=== PATIENT | female | born 1940 | race Caucasian/White ===

== ENCOUNTER → 2017-11-20 | Outpatient (CLI) | payer MEDICARE, BC | END | disposition home or self-care (01) | LOC: SURG 12:46 | PROVIDERS: ATTEND Anesthesiology Pain Medicine | DX: M47.816 Spondylosis without myelopathy or radiculopathy, lumbar region (principal); I48.91 Unspecified atrial fibrillation; I10 Essential (primary) hypertension; F17.210 Nicotine dependence, cigarettes, uncomplicated; Z98.890 Other specified postprocedural states | CPT/HCPCS: 99204 ==

== ENCOUNTER → 2017-12-18 | Outpatient (CLI) | payer MEDICARE, BC ==
[~2017-12-18] MED LIST: BUPIVACAINE MPF 0.5% 30 ML VIAL. ONE; LIDOCAINE 1% PF 30 ML VIAL. ONE; methylPREDNISolone ACETATE 40 MG/ML VIAL. ONE
== END | disposition home or self-care (01) ==
LOC: SURG 11:56
PROVIDERS: ATTEND Anesthesiology Pain Medicine
DX: M47.816 Spondylosis without myelopathy or radiculopathy, lumbar region (principal); M51.36 Other intervertebral disc degeneration, lumbar region; F17.210 Nicotine dependence, cigarettes, uncomplicated; K44.9 Diaphragmatic hernia without obstruction or gangrene; Z87.39 Personal history of other diseases of the musculoskeletal system and connective tissue; Z98.890 Other specified postprocedural states; Z91.041 Radiographic dye allergy status
CPT/HCPCS: 64493; 64494; J1030; J2001; J3490

== ENCOUNTER → 2018-06-02 | Day surgery (SDC) | payer MEDICARE, BC ==
[~2018-06-02] MED LIST changes: +ASPI81TA50 PO; +ATOR20TA58 PO; +CARV12.5 PO; +CELE200C PO; +FISH12002 PO; +FLUT9.9S NS; +GLUC100018 PO; +LACT1CAP2 PO; +MIDAZOLAM HCL PF 2 MG/2 ML VIAL. ONE; +MULT1TAB52 PO; +NIAC500T PO; +POTA20TA4 PO; +SPIR25TA5 PO; +TRAM50TA PO; +VALS1TAB22 PO; +WARF2TAB96 PO; +WARF3TAB50 PO
[2018-06-02 12:06] VITALS: BP 114/80
== END | disposition home or self-care (01) ==
LOC: SURG 09:46
PROVIDERS: ATTEND Anesthesiology Pain Medicine
DX: M47.816 Spondylosis without myelopathy or radiculopathy, lumbar region (principal); I10 Essential (primary) hypertension; E78.00 Pure hypercholesterolemia, unspecified; I48.91 Unspecified atrial fibrillation; Z91.041 Radiographic dye allergy status; Z79.82 Long term (current) use of aspirin; Z79.899 Other long term (current) drug therapy; Z72.0 Tobacco use; M19.90 Unspecified osteoarthritis, unspecified site; Z98.42 Cataract extraction status, left eye; Z98.41 Cataract extraction status, right eye; Z96.1 Presence of intraocular lens; Z98.890 Other specified postprocedural states
CPT/HCPCS: 36415; 64635; 64636; 85610; 99152; J1030; J2001; J2250; J3010; J3490

== ENCOUNTER → 2020-01-31 | Outpatient (CLI) | payer MEDICARE, BC ==
[2018-06-02 12:06] VITALS: BP 114/80
[~2020-01-31] MED LIST changes: -BUPIVACAINE MPF 0.5% 30 ML VIAL. ONE; -LIDOCAINE 1% PF 30 ML VIAL. ONE; -MIDAZOLAM HCL PF 2 MG/2 ML VIAL. ONE; +MULT-445 PO; -MULT1TAB52 PO; -methylPREDNISolone ACETATE 40 MG/ML VIAL. ONE
--- NOTE | 2020-01-31 15:18 | RAD ---
CT scan of the abdomen and pelvis without contrast 01/31/2020 CLINICAL HISTORY: Abdominal pain. TECHNIQUE: Unenhanced, contiguous, 3 mm axial sections were obtained through the abdomen and pelvis. One or more of the following individualized dose reduction techniques were utilized for this study: 1. Automated exposure control. 2. Adjustment of the mA and/or kV according to patient size. 3. Use of iterative reconstruction technique. FINDINGS: Images through the lung bases demonstrate minimal dependent subsegmental atelectasis bilaterally. The liver, spleen, pancreas, adrenal glands and kidneys are within normal limits. Atherosclerotic calcification of the abdominal aorta is seen. The abdominal aorta tapers normally. Calcified gallstones are seen within the gallbladder. No free fluid or free air is seen within the abdomen. There is no evidence of bowel obstruction. The appendix is well-visualized and is within normal limits. Images through the pelvis demonstrate the urinary bladder distended with urine. Small calcified fibroids are seen within the uterus. Scattered diverticula are seen involving the sigmoid colon. No inflammatory changes are seen in the adjacent fat. No free fluid is noted. A small left far lateral ventral hernia is seen within the mid/lower abdomen. The hernia sac measures 3.9 cm in size. It contains fat and a portion of the descending colon which is not dilated. Mild to moderate S-shaped curvature of the thoracolumbar spine is seen. Degenerative changes are seen involving lower thoracic and throughout the lumbar spine. A left-sided spinal stimulator is noted. The patient is post fusion using bone graft material at 2 L2-3, L3-4 and L4-5. IMPRESSION: 1. Cholelithiasis. 2. No acute abnormality is seen. Electronically signed by: Pavan Galvan MD (01/31/2020 3:15 PM) [id number]
== END | disposition home or self-care (01) ==
LOC: CT 10:37
PROVIDERS: ATTEND Family Medicine
DX: K43.9 Ventral hernia without obstruction or gangrene (principal); K80.20 Calculus of gallbladder without cholecystitis without obstruction; N32.89 Other specified disorders of bladder; K57.30 Diverticulosis of large intestine without perforation or abscess without bleeding; I70.0 Atherosclerosis of aorta
CPT/HCPCS: 74176

== ENCOUNTER 2020-02-16 14:57 | Observation (INO) | payer MEDICARE, BC ==
[~2020-02-16] VITALS: Ht 170.2 cm; Wt 91.7 kg
--- NOTE | 2020-02-16 15:25 | PHYS DOC ---
Past History Past Medical History: A-Fib, High Cholesterol, Hypertension Additional Past Medical Histor: Chronic back/knee pain Additional Past Surgical Histo: Back surgery Smoking: Non-smoker Alcohol Use: Rarely Drug Use: None General Adult EDM: Chief Complaint: ABDOMINAL PAIN HPI: HPI: 79-year-old female presents with report of abdominal discomfort that started this morning. Patient does report some associated nausea. Patient reports concern for possible "blockage ". Patient does report having some bowel movements in the past 24 hours. Denies vomiting. Denies fever or chills. Patient reports worse to left lower quadrant. Denies known sick contacts. Denies known exposure to COVID-19. Review of Systems: Review of Systems: Constitutional: Denies fever or chills Eyes: Denies redness or eye pain HENT: Denies nasal congestion or sore throat Respiratory: Denies cough or shortness of breath Cardiovascular: Denies chest pain or palpitations GI: Reports abdominal pain and nausea; denies vomiting : Denies dysuria or hematuria Musculoskeletal: Denies back pain or joint pain Integument: Denies rash or skin lesions Neurologic: Denies headache, focal weakness or sensory changes Complete systems were reviewed and found to be within normal limits, except as documented in this note. Allergies: Allergies: Allergies Uncoded Allergies Type Severity Reaction Last Updated Verified IV CONTRAST Allergy Unknown 05/24/18 Physical Exam: PE: Constitutional: Well developed, well nourished, no acute distress, non-toxic appearance HENT: Normocephalic, atraumatic Eyes: Conjunctiva normal, no discharge Neck: Normal range of motion, supple Lungs & Thorax: No respiratory distress, equal chest rise and fall Abdomen: Soft, no tenderness, no guarding/distention/rebound tenderness Skin: Warm, dry, no erythema, no rash Extremities: No tenderness, ROM intact, no edema Neurologic: Alert and oriented X 3, no focal deficits noted Psychologic: Affect anxious, judgment normal Current Patient Data: Vital Signs: Vital Signs Date Time Temp Pulse Resp B/P (MAP) Pulse Ox O2 Delivery O2 Flow Rate FiO2 02/16/20 15:00 97.4 84 16 132/81 (98) 98 Room Air EKG: EKG: @1538 Afib at 76bpm, NO ST elevation, low voltage QRS, nonspecific t wave inver reggie to III, QRS 88ms, QT/QTc 374/420ms Radiology/Procedures: Radiology/Procedures: PROCEDURE: CT ABD PEL W/ORAL CONTRST ONLY CT abdomen and pelvis without contrast. HISTORY: Abdominal pain CT scan the abdomen and pelvis was done without intravenous contrast. The patient was given oral contrast. Lung bases are clear. There is no effusion. A liver lesion is not identified. There are multiple gallstones in the gallbladder. The gallbladder wall is not thickened. There is a small hiatus hernia. Spleen and adrenal glands are normal. Pancreas is normal. There is no mass or hydronephrosis in the kidneys. There is no aortic aneurysm. There is degenerative change in the lumbar spine there is spinal stenosis at L4-5. Bowel pattern is normal without obstruction. Appendix is normal. There are calcified uterine leiomyomas in the uterus. Ovaries are unremarkable. There is no free fluid in the pelvis. There is mild diverticulosis without an acute diverticulitis. IMPRESSION: 1. Cholelithiasis. 2. No renal or ureteral calculus noted. 3. Scoliosis and marked degenerative change in the lumbar spine. 4. No bowel obstruction or other acute finding. PQRS Compliance Statement: One or more of the following individualized dose reduction techniques were utilized for this examination: 1. Automated exposure control 2. Adjustment of the mA and/or kV according to patient size 3. Use of iterative reconstruction technique Electronically signed by: Syed Coughlin MD (02/16/2020 5:18 PM) [facility] Course & Med Decision Making: Course & Med Decision Making Pertinent Labs and Imaging studies reviewed. (See chart for details) Patient presents with report of abdominal discomfort with associated nausea. Patient does report concern for possible small bowel obstruction. Symptomatic treatment provided. IV fluid hydration provided. Labs obtained and posted to chart. Hyponatremia noted. Hypomagnesemia addressed. CT abdomen/pelvis without acute process. Cholelithiasis again noted. Patient requiring admission for further evaluation and treatment. Discussed with Dr. Cueva (hospitalist) who is in agreement with admission. Discussed findings and plan with patient, who acknowledges understanding and agreement. Lisa Disclaimer: Lisa Disclaimer: This electronic medical record was generated, in whole or in part, using a voice recognition dictation system. Departure Departure: Impression: Primary Impression: Hyponatremia Additional Impressions: Abdominal pain Qualified Codes: R10.84 - Generalized abdominal pain Hypomagnesemia Disposition: ADMITTED INPATIENT Admitting Physician: Edmond Cueva Condition: STABLE Referrals: EDMOND CUEVA MD (PCP) Justification of Admission: Justification of Admission: Justification of Admission Dx: Yes Comments: Hyponatremia, Hypomagnesemia, Intractable abdominal pain VIVIANA HUTCHISON DO Feb 16, 2020 15:25
[2020-02-16] MEDS ORDERED: IOHEXOL 240 MG/ML 50ML VIAL. ONE (15:27)
[2020-02-16] MEDS ORDERED: IV NORMAL SALINE 1,000ML 1,000 ML IV ONE (15:30)
[2020-02-16] MEDS ORDERED: ONDANSETRON PF 4 MG/2 ML VIAL. IVP ONE (15:30)
[2020-02-16] MEDS ORDERED: FAMOTIDINE 20 MG/2 ML VIAL IVP ONE (15:30)
[2020-02-16 16:06] LABS: BASO % 1 % (0-3); EOS % 0 % (0-3); HEMATOCRIT 44.1 % (36.0-47.0); HEMOGLOBIN 15.3 g/dL (12.0-15.5); LYMPH # 1.8 x10^3/uL (1.0-4.8); LYMPH % 38 % (24-48); MEAN CORPUSCULAR HEMOGLOBIN 33 pg (25-35); MEAN CORPUSCULAR HGB CONC 35 g/dL (31-37); MEAN CORPUSCULAR VOLUME 96 fL (79-100); MONO # 0.7 x10^3/uL (0.0-1.1); MONO % 14 % (0-9); NEUT # 2.3 x10^3uL (1.8-7.7); NEUT % 47 % (31-73); PLATELET COUNT 218 x10^3/uL (140-400); RED BLOOD COUNT 4.57 x10^6/uL (3.50-5.40); RED CELL DISTRIBUTION WIDTH 12.9 % (11.5-14.5); WHITE BLOOD COUNT 4.8 x10^3/uL (4.0-11.0)
[2020-02-16 16:10] LABS: ANION GAP 12 (6-14); BLOOD UREA NITROGEN 9 mg/dL (7-20); BUN/CREATININE RATIO 9 (6-20); CALCIUM 9.3 mg/dL (8.5-10.1); CARBON DIOXIDE 23 mmol/L (21-32); CHLORIDE 88 mmol/L (98-107); GFR 53.3; GLUCOSE 116 mg/dL (70-99); POTASSIUM 3.5 mmol/L (3.5-5.1); SODIUM 123 mmol/L (136-145)
[2020-02-16] MEDS ORDERED: METOCLOPRAMIDE HCL 10 MG/2 ML VIAL. IVP ONE (16:25)
[2020-02-16 16:26] LABS: ALBUMIN 3.8 g/dL (3.4-5.0); ALK PHOS 66 U/L (46-116); ALT (SGPT) 25 U/L (14-59); AST (SGOT) 24 U/L (15-37); LIPASE 131 U/L (73-393); MAGNESIUM 1.5 mg/dL (1.8-2.4); TOTAL BILIRUBIN 0.7 mg/dL (0.2-1.0); TOTAL PROTEIN 7.6 g/dL (6.4-8.2)
[2020-02-16 17:08] LABS: BILIRUBIN,URINE NEG (NEG); CLARITY,URINE CLEAR; COLOR,URINE YELLOW; GLUCOSE,URINE NEG (NEG); NITRITE,URINE NEG (NEG); UROBILINOGEN,URINE 0.2 mg/dL (0.2 mg/dL)
[2020-02-16 17:09] LABS: BACTERIA,URINE FEW /HPF (0-FEW); SQUAMOUS EPITHELIAL CELL,UR MOD /LPF
[2020-02-16] MEDS ORDERED: MAGNESIUM SULFATE 2GM 50 ML IV ONE (17:10)
--- NOTE | 2020-02-16 17:20 | RAD ---
CT abdomen and pelvis without contrast. HISTORY: Abdominal pain CT scan the abdomen and pelvis was done without intravenous contrast. The patient was given oral contrast. Lung bases are clear. There is no effusion. A liver lesion is not identified. There are multiple gallstones in the gallbladder. The gallbladder wall is not thickened. There is a small hiatus hernia. Spleen and adrenal glands are normal. Pancreas is normal. There is no mass or hydronephrosis in the kidneys. There is no aortic aneurysm. There is degenerative change in the lumbar spine there is spinal stenosis at L4-5. Bowel pattern is normal without obstruction. Appendix is normal. There are calcified uterine leiomyomas in the uterus. Ovaries are unremarkable. There is no free fluid in the pelvis. There is mild diverticulosis without an acute diverticulitis. IMPRESSION: 1. Cholelithiasis. 2. No renal or ureteral calculus noted. 3. Scoliosis and marked degenerative change in the lumbar spine. 4. No bowel obstruction or other acute finding. RS Compliance Statement: One or more of the following individualized dose reduction techniques were utilized for this examination: 1. Automated exposure control 2. Adjustment of the mA and/or kV according to patient size 3. Use of iterative reconstruction technique Electronically signed by: Syed Coughlin MD (02/16/2020 5:18 PM) [facility]
[2020-02-16] MEDS ORDERED: ONDANSETRON PF 4 MG/2 ML VIAL. IVP PRN (17:45)
--- NOTE | 2020-02-16 17:58 | EKG ---
[address] [address] Test Date: 2020-02-16 Test Time: 15:38:43 Pat Name: CRAIG OAKLEY Department: Room: Gender: F Product Representative: : 1940 Requested By: VIVIANA HUTCHISON Order Number: [id number] Reading MD: Measurements Intervals [place] Rate: 76 P: ME: QRS: 7 QRSD: 88 T: -13 QT: 374 QTc: 420 Interpretive Statements IRREGULAR RHYTHM, NO P-WAVE FOUND T ABNORMALITY IN INFERIOR LEADS ABNORMAL ECG RI6.02 No previous ECG available for comparison
[2020-02-16 18:42] VITALS: BP 165/83
[2020-02-16] MEDS ORDERED: ELECTROLYTE (NON-ICU) PROTOCOL MC PRN (18:45)
[2020-02-16] MEDS ORDERED: traMADol 50 MG TABLET PO PRN (18:45)
[2020-02-16] MEDS ORDERED: MORPHINE SULFATE 2 MG/ML DISP.SYRIN. IV PRN (19:00)
[2020-02-16] MEDS ORDERED: ZOLPIDEM 5 MG TABLET. PO PRN (19:00)
[2020-02-16] MEDS ORDERED: HYDR-2145 PO (20:14)
[2020-02-16] MEDS ORDERED: GABA100C6 PO (20:14)
[2020-02-16] MEDS ORDERED: APIX5TAB3 PO (20:14)
[2020-02-16] MEDS ORDERED: LOSA100T14 PO (20:14)
[2020-02-16] MEDS ORDERED: CRAN250C PO (20:14)
[2020-02-16] MEDS: CARVEDILOL 12.5 MG TABLET PO SCH (20:26)
--- NOTE | 2020-02-16 20:34 | NUR ---
Pt. had already arrived on unit when this nurse came on shift. Pt. was in room 111 resting comfortably when assessment was completed. Pt. was calm, cooperative, and had no complaints of abdominal pain during assessment. Pt. was orientated to room and routine. Pt responded well but states she has fear of abd obstruction. Pt had CT of abd and pelvis that came back negative for obstruction. Pt. states that the pain is not stabbing but does make her feel nausea. At home med list was provided by pt. Pt has no complaints of abdominal pain or nausea at this time.
[2020-02-16] MEDS ORDERED: GLUCOSAMINE 500 MG CAPSULE PO SCH (21:00)
[2020-02-16] MEDS: GABAPENTIN 100 MG CAPSULE. PO SCH (21:00)
[2020-02-16] MEDS ORDERED: NIACIN ER 500 MG TABLET.ER PO SCH (21:00)
[2020-02-16] MEDS: IV NORMAL SALINE 1,000ML 1,000 ML IV SCH (21:38)
--- NOTE | 2020-02-16 22:33 | RAD ---
CHEST PA LATERAL History: Chest pain, abdominal pain, nausea Comparison: None. Findings: 2 views of the chest are submitted. There is no infiltrate, pneumothorax, or effusion. Pericardial cardiac silhouette is borderline. There are thoracic spinal stimulator leads. Impression: 1. Pericardial cardiac silhouette is borderline. There is no significant pleural fluid or infiltrate. Electronically signed by: Christopher Alvarenga MD (02/16/2020 10:31 PM) [facility]
[2020-02-17 00:17] VITALS: BP 124/74
[2020-02-17] MEDS: IV NORMAL SALINE 1,000ML 1,000 ML IV SCH (05:38)
[2020-02-17 05:39] VITALS: BP 144/77
--- NOTE | 2020-02-17 05:59 | NUR ---
Pt slept through much of the noc, only awakening to void. Pt awoke this AM c/o minimal LLQ discomfort, bloating, and nausea. Pt given PRN Zofran at 0538 per request. Pt now sitting up in chair, reports passing flatus and is feeling much better.
[2020-02-17 06:09] LABS: BASO % 1 % (0-3); EOS % 1 % (0-3); HEMOGLOBIN 14.2 g/dL (12.0-15.5); LYMPH # 1.9 x10^3/uL (1.0-4.8); LYMPH % 39 % (24-48); MEAN CORPUSCULAR HEMOGLOBIN 33 pg (25-35); MEAN CORPUSCULAR HGB CONC 35 g/dL (31-37); MEAN CORPUSCULAR VOLUME 96 fL (79-100); MONO # 0.7 x10^3/uL (0.0-1.1); MONO % 14 % (0-9); NEUT # 2.3 x10^3uL (1.8-7.7); NEUT % 46 % (31-73); PLATELET COUNT 183 x10^3/uL (140-400); RED BLOOD COUNT 4.28 x10^6/uL (3.50-5.40); RED CELL DISTRIBUTION WIDTH 12.6 % (11.5-14.5); WHITE BLOOD COUNT 4.9 x10^3/uL (4.0-11.0)
[2020-02-17 06:28] LABS: CALCIUM 8.4 mg/dL (8.5-10.1); CREATININE 0.9 mg/dL (0.6-1.0); GFR 60.2; POTASSIUM 3.3 mmol/L (3.5-5.1)
[2020-02-17] MEDS ORDERED: POTASSIUM CHLORIDE 20 MEQ TABLET.ER. PO SCH ×2 (08:00→09:00)
[2020-02-17] MEDS: CARVEDILOL 12.5 MG TABLET PO SCH (08:23)
[2020-02-17] MEDS: GABAPENTIN 100 MG CAPSULE. PO SCH (08:24)
[2020-02-17] MEDS ORDERED: OMEGA-3 FATTY ACIDS/FISH OIL 1,000 MG CAPSULE. PO SCH (09:00)
[2020-02-17] MEDS ORDERED: FLUTICASONE 50MCG/NASAL SPRAY 16GM BOTTLE. NS SCH (09:00)
[2020-02-17] MEDS ORDERED: MAGNESIUM CHLORIDE ER 64 MG TABLET.ER PO SCH (09:00)
[2020-02-17] MEDS ORDERED: NON FORMULARY ITEM (Losartan Potassium 100 MG) PO SCH (09:00)
[2020-02-17] MEDS ORDERED: ATORVASTATIN CALCIUM 20 MG TABLET PO SCH (09:00)
[2020-02-17] MEDS ORDERED: WARFARIN 3 MG TABLET. PO SCH (09:00)
[2020-02-17] MEDS ORDERED: MULTIVITAMIN with MINERAL TABLET. PO SCH (09:00)
[2020-02-17] MEDS ORDERED: LOSARTAN 50 MG TABLET. PO SCH (09:00)
[2020-02-17] MEDS ORDERED: WARFARIN 2 MG TABLET. PO SCH (09:00)
[2020-02-17] MEDS ORDERED: APIXABAN 5 MG TABLET. PO SCH (09:00)
[2020-02-17] MEDS ORDERED: hydroCHLOROthiazide 25 MG TABLET PO SCH (09:00)
[2020-02-17] MEDS ORDERED: SPIRONOLACTONE 25 MG TABLET PO SCH (09:00)
[2020-02-17] MEDS ORDERED: ASPIRIN ENTERIC COATED 81 MG TABLET.DR. PO SCH (09:00)
[2020-02-17] MEDS ORDERED: PANTOPRAZOLE 40 MG TABLET. PO SCH (09:15)
--- NOTE | 2020-02-17 10:07 | HP ---
ADMIT DATE: 02/16/2020 HISTORY OF PRESENT ILLNESS: The patient has severe left upper quadrant pain, had enough that it caused her to double over. She has nausea, but no vomiting. She says she has had this for the last 24 hours with no relief. The patient also notes some radiation of the pain down in the left lower quadrant area. She came in through the Emergency Room, was found to have a low sodium of 123 and the patient was admitted at least for her low sodium as well as further evaluation of this situation of her abdominal pain in the left upper to left lower quadrant area. PAST MEDICAL HISTORY: Includes chronic atrial fibrillation, rectal abscesses, hypertension, bilateral carpal tunnel syndrome, back stimulator, quit smoking 40 years ago, and influenza vaccine. ALLERGIES: The patient otherwise allergic to IODINE CONTRAST MEDIA. SOCIAL HISTORY: The patient denies smoking, alcohol or drug use. Full code. FAMILY HISTORY: Noncontributory. MEDICATIONS: Reviewed and reconciled in the chart consisting of Eliquis 5 mg b.i.d., Lipitor 20, carvedilol 25 b.i.d., losartan 100, spironolactone, aspirin, tramadol, gabapentin, potassium chloride, hydrochlorothiazide, fluticasone, multivitamin and cranberry extract. REVIEW OF SYSTEMS: Denies any headaches, visual change, blurred vision, double vision. Denies any melena, hematochezia, or hematemesis. Does have abdominal pain. Does have some nausea but no vomiting. NEUROLOGIC: Alert and oriented x 3. GENITOURINARY: Unremarkable. Urinating okay. PHYSICAL EXAMINATION: GENERAL: This is a pleasant white female. VITAL SIGNS: Blood pressure 144/77, respiratory rate 20, pulse 74, afebrile. HEENT: The patient's head was atraumatic, normocephalic. Eyes: PERRLA without jaundice. Mouth and throat were normal. NECK: Supple, without JVD, carotid bruits or thyromegaly. LUNGS: Basically clear. CARDIOVASCULAR: Regular sinus rhythm, S1, S2, without murmur, rub, thrill, or extra heart sound. ABDOMEN: Soft, diffuse tenderness in the left upper quadrant area, but no rebounding, no guarding. Positive bowel sounds, no hepatosplenomegaly was noted. EXTREMITIES: No clubbing, cyanosis, nor edema. NEUROLOGIC: The patient was alert and oriented x 3. The patient otherwise will be monitored carefully. IMPRESSION: Abdominal pain. Continue to monitor the patient accordingly, make further evaluation, IV fluids to give her sodium, hyponatremia, dehydration, nausea, abdominal pain. PLAN: As above. EDMOND OLIVEIRA MD DR: CHEL/edson JOB#: [id number] / [id number]
[2020-02-17 11:19] VITALS: BP 116/71
--- NOTE | 2020-02-17 13:00 | NUR ---
PATIENT WAS ADVANCED TO GI SOFT DIET, PT TOLERATED HER MEAL WITHOUT NAUSEA OR ABDOMINAL PAIN, PT STATED SHE HAD A BM EARLIER BEFORE LUNCH. WILL CONTINUE TO MONITOR.
--- NOTE | 2020-02-17 16:01 | NUR ---
PATIENT IS DISCHARGED HOME, DISCHARGE INSTRUCTION REVIEWED, PT VERBALIZED UNDERSTANDING. PT LEFT ROOM VIA W/C ACCOMPANIED BY THIS RN. PT IS TAKEN HOME BY SPOUSE VIA PERSONAL VEHICLE.
[2020-02-17] MEDS ORDERED: CARVEDILOL 12.5 MG TABLET PO SCH (21:00)
== END 2020-02-17 15:55 | disposition home or self-care (01) ==
LOC: ER 14:57 → 1 SOUTH 18:13 → INTOOBSV 18:13
PROVIDERS: ADMIT Family Medicine; ATTEND Family Medicine
DX: R10.12 Left upper quadrant pain (principal); K80.20 Calculus of gallbladder without cholecystitis without obstruction; M41.56 Other secondary scoliosis, lumbar region; I48.20 Chronic atrial fibrillation, unspecified; I10 Essential (primary) hypertension; E83.42 Hypomagnesemia; G56.03 Carpal tunnel syndrome, bilateral upper limbs; E87.1 Hypo-osmolality and hyponatremia; Z87.891 Personal history of nicotine dependence
CPT/HCPCS: 36415; 71046; 74176; 80048; 80053; 81001; 82553; 83605; 83690; 83735; 84484; 85025; 85610; 85730; 87086; 93005; 96365; 96366; 96375; 96376; 99285; G0378; G0379; J2405; J2765; J3475; J3490; J7030

== ENCOUNTER → 2020-03-13 | Outpatient (CLI) | payer MEDICARE, BC ==
[2020-02-17 11:19] VITALS: BP 116/71
[~2020-03-13] MED LIST changes: +APIX5TAB3 PO; +CRAN250C PO; +GABA100C6 PO; +HYDR-2145 PO; +LOSA100T14 PO
--- NOTE | 2020-03-13 19:20 | RAD ---
Ultrasound of the right foot 03/13/2020 CLINICAL HISTORY: Lump on the distal right foot. TECHNIQUE: Real-time ultrasound examination of the soft tissues of the right foot air patient feels palpable lump was performed. Multiple images were obtained. FINDINGS: A well-defined oval-shaped, hypoechoic, nonvascular mass is seen within the dorsal soft tissues of the right foot near the base of the right fourth toe. This measures 1.4 cm in greatest diameter. It is 2 mm deep to the skin surface. Its ultrasound appearance is nonspecific. Most soft tissue masses of the foot are benign. This could possibly represent a fibroma or possibly a nerve sheath tumor. No additional soft tissue mass is seen. IMPRESSION: 1.4 cm oval-shaped hypoechoic mass is seen within the dorsal soft tissues of the right foot near the base of the right fourth toe. This corresponds to the patient's palpable abnormality. Its ultrasound appearance is nonspecific as discussed above. This could be further evaluated by MRI if clinically warranted. Electronically signed by: Pavan Galvan MD (03/13/2020 7:17 PM) [id number]
== END | disposition home or self-care (01) ==
LOC: US 10:56
PROVIDERS: ATTEND Family Medicine
DX: R22.41 Localized swelling, mass and lump, right lower limb (principal)
CPT/HCPCS: 76881

== ENCOUNTER 2020-08-09 00:32 | Emergency (ER) | payer MEDICARE, BC ==
[~2020-08-09] VITALS: Ht 170.2 cm; Wt 91.7 kg
--- NOTE | 2020-08-09 00:48 | PHYS DOC ---
Past History Past Medical History: A-Fib, High Cholesterol, Hypertension Additional Past Medical Histor: Chronic back/knee pain Past Surgical History: Tonsillectomy Additional Past Surgical Histo: Back surgery Smoking: Non-smoker Alcohol Use: Rarely Drug Use: None Adult General Chief Complaint Chief Complaint: OTHER COMPLAINTS HPI HPI Patient is a 80-year-old female who presents for bradycardia. Patient who is currently established with cardiology office at [facility] and has 30-day heart monitor was called while she was sleeping and notified by heart monitor mill representative that she was bradycardic with ventricular rhythm at 30 bpm. Patient reports being mildly nauseous when waking up but otherwise well. Nonetheless, it was advised that she seek immediate medical evaluation at local ER. On arrival, patient asymptomatic. No fever, recent illness, known COVID-19 exposure, chest pain, shortness of breath, cough, abdominal pain, nausea, urinary symptoms, no changes in motor or sensory function. She has been taking all medications as prescribed, no increase in weight. Review of Systems Review of Systems Fourteen body systems of review of systems have been reviewed. See HPI for pertinent positives and negative responses, other howe all other systems are negative, non-pertinent or non-contributory Allergies Allergies Allergies Coded Allergies Type Severity Reaction Last Updated Verified Iodinated Contrast Media Allergy Unknown 02/16/20 Yes Physical Exam Physical Exam Constitutional: Well developed, well nourished, no acute distress, non-toxic appearance. HENT: Normocephalic, atraumatic, bilateral external ears normal, oropharynx celena st, no oral exudates, nose normal. Eyes: PERRLA, EOMI, conjunctiva normal, no discharge. Neck: Normal range of motion, no tenderness, supple, no stridor. Cardiovascular: Heart rate regular, sinus rhythm, no murmurs rubs or gallops Lungs & Thorax: Bilateral breath sounds clear to auscultation Abdomen: Bowel sounds normal, soft, no tenderness, no masses, no pulsatile masses. Nonsurgical abdomen, no peritoneal signs Skin: Warm, dry, no erythema, no rash. Back: No tenderness, no CVA tenderness. Extremities: No tenderness, no cyanosis, no clubbing, ROM intact, no edema. Neurologic: Alert and oriented X 3, grossly normal motor & sensory function, no focal deficits noted. Psychologic: Affect normal, judgement normal, mood normal. Current Patient Data Vital Signs Vital Signs Date Time Temp Pulse Resp B/P (MAP) Pulse Ox O2 Delivery O2 Flow Rate FiO2 08/09/20 00:36 97.4 84 18 149/80 (103) 97 Room Air Lab Results Laboratory Tests Test 08/09/20 00:47 White Blood Count 6.9 x10^3/uL Red Blood Count 4.54 x10^6/uL Hemoglobin 14.8 g/dL Hematocrit 43.4 % Mean Corpuscular Volume 96 fL Mean Corpuscular Hemoglobin 33 pg Mean Corpuscular Hemoglobin Concent 34 g/dL Red Cell Distribution Width 12.1 % Platelet Count 212 x10^3/uL Neutrophils (%) (Auto) 59 % Lymphocytes (%) (Auto) 28 % Monocytes (%) (Auto) 12 % Eosinophils (%) (Auto) 1 % Basophils (%) (Auto) 0 % Neutrophils # (Auto) 4.1 x10^3uL Lymphocytes # (Auto) 1.9 x10^3/uL Monocytes # (Auto) 0.8 x10^3/uL Eosinophils # (Auto) 0.1 x10^3/uL Basophils # (Auto) 0.0 x10^3/uL Sodium Level 124 mmol/L Potassium Level 3.5 mmol/L Chloride Level 88 mmol/L Carbon Dioxide Level 25 mmol/L Anion Gap 11 Blood Urea Nitrogen 12 mg/dL Creatinine 1.2 mg/dL Estimated GFR (Cockcroft-Gault) 43.1 Glucose Level 144 mg/dL Calcium Level 9.7 mg/dL Troponin I Quantitative < 0.017 ng/mL TV-Ctq-P-Type Natriuretic Peptide 715 pg/mL EKG EKG EKG ordered and interpreted by myself at 00 42 hours as atrial fibrillation with ventricular rate of 90 bpm, prolonged QTC at 494 otherwise unremarkable intervals, right axis deviation, no obvious ischemic abnormalities, no STEMI, no prior EKG to compare to Radiology/Procedures Radiology/Procedures XR CHEST 1V 08/09/2020 12:59 AM INDICATION: Bradycardia COMPARISON: 02/16/2020 TECHNIQUE: Portable frontal view of the chest is provided. FINDINGS: The cardiomediastinal silhouette is within normal limits. Lungs are clear. There are no significant pleural effusions. There is no pulmonary vascular congestion. No pneumothorax. No suspicious osseous abnormality. Spinal epidural leads are not visualized. IMPRESSION: There is no acute cardiopulmonary process. Electronically signed by: Elidia Cancino MD (08/09/2020 1:32 AM) [facility] [place] Heart Score HEART Score for Chest Pain: HEART Score for Chest Pain Response (Comments) Value History Slighlty/Non-Suspicious 0 ECG Normal 0 Age > 65 2 Risk Factors >3 Risk Factors or Hx CAD 2 Troponin < Normal Limit 0 Total 4 Risk Factors: Risk Factors: DM, Current or recent (<one month) smoker, HTN, HLP, family history of CAD, obesity. Risk Scores: Risk Factors: DM, Current or recent (<one month) smoker, HTN, HLP, family history of CAD, obesity. Course & Med Decision Making Course & Med Decision Making Discussed with the patient all findings and diagnostic testing. I discussed most likely diagnosis of reported bradycardia while sleeping. In addition, patient found to have hyponatremia that appears to be chronic, she is on numerous medications that is most likely cause of this. Patient grossly asymptomatic throughout entirety of ER visit. No obvious emergent and/or surgical findings. I did disclose this might be an acute presentation of more concerning pathology and given risk factors, I recommended admission for cardiac observation but patient declined. States she has good PCP follow-up, has good access to skip hoist operator, and has 30-day heart monitor on. She reports and request that she wants to go home and will follow up with her cardiology team in the morning regarding overnight events that was captured while sleeping. Strict return precautions were also discussed at length with good understanding by patient. Patient voiced understanding and agreement with the plan. Patient knows to come back for repeat evaluation if concerning signs or symptoms present prior to outpatient follow-up. Hemodynamically stable, ambulatory and well-appearing at time of disposition. Dragon Disclaimer Dragon Disclaimer This electronic medical record was generated, in whole or in part, using a voice recognition dictation system. Departure Departure: Impression: Primary Impression: Atrial fibrillation Additional Impression: Hyponatremia Disposition: 01 DC HOME SELF CARE/HOMELESS Condition: GOOD Referrals: EDMOND OLIVEIRA MD (PCP) Patient Instructions: Atrial Fibrillation, Hyponatremia Additional Instructions: As discussed prior to ER departure, I would call your primary care physician first thing this morning to discuss ER visit today. I would discuss need for outpatient hyponatremia evaluation, this appears chronic, you are on numerous medications that are likely the cause of this finding. In addition, I would recommend you contact your cardiology team first thing this morning to review slow heart rate that was captured while sleeping. You are on a current heart monitor, I would call them to discuss needed next steps in care. You were offered cardiac admission for observation and further intervention as indicated but deferred. Nonetheless, if any concerning signs or symptoms present prior to outpatient follow-up please do not hesitate to come back to our ER for repeat evaluation. It was a pleasure to take care of you and I wish you the best going forward Problem Qualifiers DONATO GARAY DO Aug 09, 2020 00:48
[2020-08-09 01:03] LABS: BASO % 0 % (0-3); EOS # 0.1 x10^3/uL (0.0-0.7); EOS % 1 % (0-3); HEMATOCRIT 43.4 % (36.0-47.0); HEMOGLOBIN 14.8 g/dL (12.0-15.5); LYMPH # 1.9 x10^3/uL (1.0-4.8); LYMPH % 28 % (24-48); MEAN CORPUSCULAR HEMOGLOBIN 33 pg (25-35); MEAN CORPUSCULAR HGB CONC 34 g/dL (31-37); MEAN CORPUSCULAR VOLUME 96 fL (79-100); MONO # 0.8 x10^3/uL (0.0-1.1); MONO % 12 % (0-9); NEUT # 4.1 x10^3uL (1.8-7.7); NEUT % 59 % (31-73); PLATELET COUNT 212 x10^3/uL (140-400); RED BLOOD COUNT 4.54 x10^6/uL (3.50-5.40); RED CELL DISTRIBUTION WIDTH 12.1 % (11.5-14.5); WHITE BLOOD COUNT 6.9 x10^3/uL (4.0-11.0)
[2020-08-09 01:19] LABS: CALCIUM 9.7 mg/dL (8.5-10.1); CREATININE 1.2 mg/dL (0.6-1.0); GFR 43.1; POTASSIUM 3.5 mmol/L (3.5-5.1)
[2020-08-09 01:33] VITALS: BP 128/63
--- NOTE | 2020-08-09 01:35 | RAD ---
XR CHEST 1V 08/09/2020 12:59 AM INDICATION: Bradycardia COMPARISON: 02/16/2020 TECHNIQUE: Portable frontal view of the chest is provided. FINDINGS: The cardiomediastinal silhouette is within normal limits. Lungs are clear. There are no significant pleural effusions. There is no pulmonary vascular congestion. No pneumothora x. No suspicious osseous abnormality. Spinal epidural leads are not visualized. IMPRESSION: There is no acute cardiopulmonary process. Electronically signed by: Elidia Cancino MD (08/09/2020 1:32 AM) [facility]
--- NOTE | 2020-08-10 16:49 | EKG ---
[address] [address] Test Date: 2020-08-09 Test Time: 00:38:00 Pat Name: CRAIG OAKLEY Department: Room: Gender: F Metal Drill Operator: CLAUDIA : 1940 Requested By: DONATO GARAY Order Number: [id number] Reading MD: Measurements Intervals [place] Rate: 90 P: MO: QRS: 139 QRSD: 86 T: -28 QT: 400 QTc: 494 Interpretive Statements IRREGULAR RHYTHM, NO P-WAVE FOUND VENTRICULAR PREMATURE COMPLEX(ES), TRIGEMINY ABNORMAL RIGHT AXIS DEVIATION LOW LIMB LEAD VOLTAGE PROLONGED QT ABNORMAL ECG RI6.02 No previous ECG available for comparison
== END 2020-08-09 02:10 | disposition home or self-care (01) ==
LOC: ER 00:32
DX: I48.20 Chronic atrial fibrillation, unspecified (principal); E87.1 Hypo-osmolality and hyponatremia; R00.1 Bradycardia, unspecified; R11.0 Nausea; E78.00 Pure hypercholesterolemia, unspecified; I10 Essential (primary) hypertension; G89.29 Other chronic pain; Z90.89 Acquired absence of other organs; Z98.890 Other specified postprocedural states; Z91.041 Radiographic dye allergy status
CPT/HCPCS: 36415; 71045; 80048; 83880; 84484; 85025; 93005; 99285

== ENCOUNTER → 2020-09-28 | Outpatient (CLI) | payer MEDICARE, BC ==
[2020-09-28 13:17] LABS: BASO % 1 % (0-3); EOS % 1 % (0-3); HEMATOCRIT 43.9 % (36.0-47.0); HEMOGLOBIN 14.7 g/dL (12.0-15.5); LYMPH # 2.2 x10^3/uL (1.0-4.8); LYMPH % 30 % (24-48); MEAN CORPUSCULAR HEMOGLOBIN 32 pg (25-35); MEAN CORPUSCULAR HGB CONC 34 g/dL (31-37); MEAN CORPUSCULAR VOLUME 96 fL (79-100); MONO # 0.8 x10^3/uL (0.0-1.1); MONO % 10 % (0-9); NEUT # 4.2 x10^3uL (1.8-7.7); NEUT % 58 % (31-73); PLATELET COUNT 243 x10^3/uL (140-400); RED BLOOD COUNT 4.56 x10^6/uL (3.50-5.40); RED CELL DISTRIBUTION WIDTH 12.4 % (11.5-14.5); WHITE BLOOD COUNT 7.3 x10^3/uL (4.0-11.0)
--- NOTE | 2020-09-28 13:25 | RAD ---
INDICATION: Reason: RECURRENT UTI'S / Spl. Instructions: / History: . COMPARISON: February 16, 2020 TECHNIQUE: Axial CT images obtained through the abdomen and pelvis without contrast. One or more of the following individualized dose reduction techniques were utilized for this examinat ion: 1. Automated exposure control; 2. Adjustment of the mA and/or kV according to patient size; 3 . Use of iterative reconstruction technique. FINDINGS: Scoliotic curvature the spine with degenerative changes. Stimulator is seen with leads projecting ove r thoracic spine. Pacemaker partially visualized lung bases. Trace pericardial effusion. Mild distention of the distal esophagus versus small hiatal hernia. Atherosclerotic disease throughout the abdominal aorta. No intrahepatic bile duct dilation. Numerous gallstones. Liver is mildly enlarged. Small fat-containi ng umbilical hernia. Limited assessment of pancreas without contrast. Spleen is unremarkable. Mild nodular thickening left adrenal gland. Prominence of bilateral extrarena l pelvis. Urinary bladder is partially distended. Calcifications within the uterus could be from fibr oids. No right-sided hydronephrosis. Colonic diverticulosis. There is a left lateral posterior hernia defect with a portion of the left si de of the colon extending into it. No associated obstruction. No periappendiceal inflammatory changes . Appendix measures 6 mm which is upper limits of normal. Degenerative changes throughout the spine w ith scoliotic curvature as well as multilevel central canal and neural foraminal stenosis. Postoperat zuly changes to the spine with artificial disc at L4-5, L3-4 and L2-3. IMPRESSION: * Distention of the bilateral extrarenal pelvis is again seen. There are calcifications within the b ilateral pelvis which could be vascular in nature as well as from phleboliths. A definite radiopaque obstructive ureter stone is not identified. * Colonic diverticulosis. * Severe degenerative changes the spine with multilevel central canal neural foraminal stenosis. * Appendix is upper limits of normal without adjacent inflammatory changes. * Calcifications within the uterus which is commonly secondary to fibroids. Electronically signed by: Heriberto Alvarez MD (09/28/2020 1:22 PM) [id number]
[2020-09-28 13:31] LABS: ALBUMIN 3.4 g/dL (3.4-5.0); ALBUMIN/GLOBULIN RATIO 0.9 (1.0-1.7); CALCIUM 9.3 mg/dL (8.5-10.1); GFR 53.2; POTASSIUM 4.6 mmol/L (3.5-5.1); TOTAL BILIRUBIN 0.9 mg/dL (0.2-1.0); TOTAL PROTEIN 7.4 g/dL (6.4-8.2)
== END ==
LOC: CT 12:39
PROVIDERS: ATTEND Family Medicine
DX: K42.9 Umbilical hernia without obstruction or gangrene (principal); K57.30 Diverticulosis of large intestine without perforation or abscess without bleeding; K80.20 Calculus of gallbladder without cholecystitis without obstruction; R82.79 Other abnormal findings on microbiological examination of urine; M41.84 Other forms of scoliosis, thoracic region; I70.0 Atherosclerosis of aorta; D25.9 Leiomyoma of uterus, unspecified; I87.8 Other specified disorders of veins
CPT/HCPCS: 36415; 74176; 80053; 82150; 83690; 85025

== ENCOUNTER 2020-10-06 10:30 | Inpatient (IN) | payer MEDICARE, BC ==
[~2020-10-06] VITALS: Ht 171.4 cm; Wt 88.9 kg
[2020-10-06] MEDS ORDERED: HALOPERIDOL LACT 5 MG/ML VIAL. IVP ONE ×2 (11:30→12:30)
[2020-10-06 11:46] LABS: BASO % 0 % (0-3); EOS % 0 % (0-3); HEMATOCRIT 45.9 % (36.0-47.0); HEMOGLOBIN 15.5 g/dL (12.0-15.5); LYMPH # 1.6 x10^3/uL (1.0-4.8); LYMPH % 25 % (24-48); MEAN CORPUSCULAR HEMOGLOBIN 32 pg (25-35); MEAN CORPUSCULAR HGB CONC 34 g/dL (31-37); MEAN CORPUSCULAR VOLUME 95 fL (79-100); MONO # 0.8 x10^3/uL (0.0-1.1); MONO % 13 % (0-9); NEUT # 3.8 x10^3uL (1.8-7.7); NEUT % 61 % (31-73); PLATELET COUNT 254 x10^3/uL (140-400); RED BLOOD COUNT 4.81 x10^6/uL (3.50-5.40); RED CELL DISTRIBUTION WIDTH 12.5 % (11.5-14.5); WHITE BLOOD COUNT 6.3 x10^3/uL (4.0-11.0)
[2020-10-06 11:54] LABS: CALCIUM 9.7 mg/dL (8.5-10.1); CREATININE 1.2 mg/dL (0.6-1.0); GFR 43.1; POTASSIUM 4.5 mmol/L (3.5-5.1)
[2020-10-06 12:00] LABS: ALBUMIN 3.7 g/dL (3.4-5.0); ALBUMIN/GLOBULIN RATIO 0.9 (1.0-1.7); TOTAL BILIRUBIN 0.8 mg/dL (0.2-1.0); TOTAL PROTEIN 7.9 g/dL (6.4-8.2)
[2020-10-06] MEDS ORDERED: HALOPERIDOL LACT 5 MG/ML VIAL. IM ONE (12:30)
[2020-10-06 12:31] LABS: CLARITY,URINE CLEAR; COLOR,URINE YELLOW
[2020-10-06 12:32] LABS: AMORPHOUS SEDIMENT,UR PRESENT /HPF; BACTERIA,URINE 0 /HPF (0-FEW); BILIRUBIN,URINE NEG (NEG); GLUCOSE,URINE NEG (NEG); NITRITE,URINE NEG (NEG); RBC,URINE OCC /HPF (0-2); SQUAMOUS EPITHELIAL CELL,UR FEW /LPF; UROBILINOGEN,URINE 0.2 mg/dL (0.2 mg/dL); WBC,URINE OCC /HPF (0-4)
[2020-10-06] MEDS ORDERED: IV NORMAL SALINE 1,000ML 1,000 ML IV ONE (13:15)
--- NOTE | 2020-10-06 13:15 | EKG ---
[address] [address] Test Date: 2020-10-06 Test Time: 10:42:21 Pat Name: CRAIG OAKLEY Department: Room: Gender: F Bow Maker: RASHID : [id number] Requested By: MAIRA MOORE Order Number: [id number] Reading MD: Measurements Intervals [place] Rate: 115 P: PA: QRS: 13 QRSD: 80 T: 1 QT: 340 QTc: 472 Interpretive Statements IRREGULAR RHYTHM, NO P-WAVE FOUND NO SPECIFIC ECG ABNORMALITIES RI6.02 No previous ECG available for comparison
--- NOTE | 2020-10-06 14:15 | RAD ---
EXAM: CT Head without IV contrast INDICATION: Reason: confusion / Spl. Instructions: / History: TECHNIQUE: Multi-detector row CT images were obtained of the head without the use of IV contrast. All CT scans performed at this facility utilize dose optimization techniques as appropriate to the exam, including the following: Automated exposure control and adjustment of the mA and/or KV according to patient size (this includes techniques or standardized protocols for targeted exams where dose is ind ication/reason for exam). COMPARISON: None FINDINGS: BRAIN PARENCHYMA: No evidence of acute intraparenchymal hemorrhage or infarct. There is mild white ma tter low density compatible chronic ischemic microvascular change, noted in the setting of mild gener alized parenchymal volume loss. VENTRICLES & EXTRA-AXIAL SPACES: Ventricles are within normal limits. Basilar cisterns are patent. N o pathologic extra-axial fluid collection or mass. No acute on the initial scan, patient exhibited so me motion that created artifact mimicking acute subdural hematomas over the bilateral cerebral hemisp heres. However, repeat imaging of these areas did not confirm the presence of acute intracranial hemo rrhage ORBITS: Orbital contents are unremarkable. SINUSES: Visualized paranasal sinuses and mastoid air cells are clear. OSSEOUS & SOFT TISSUES: Calvarium and skull base are intact. IMPRESSION: No acute intracranial pathology. FOR INTERNAL CODING PURPOSES Critical result: Findings discussed with Dr. Chacon at 10/06/2020 2:11 PM. RESULT CODE: (C) Electronically signed by: Vern Peck MD (10/06/2020 2:13 PM) [facility] [place]
[2020-10-06 15:14] VITALS: BP 145/88
[2020-10-06] MEDS ORDERED: LINA145C PO (15:16)
[2020-10-06] MEDS ORDERED: ALPR0.254 PO (15:16)
[2020-10-06] MEDS ORDERED: PHEN-444 PO (15:16)
[2020-10-06] MEDS ORDERED: LIDO5CRE18 TP (15:16)
[2020-10-06] MEDS ORDERED: LUBI8CAP4 PO (15:16)
--- NOTE | 2020-10-06 15:17 | PHYS DOC ---
Past History Past Medical History: A-Fib, High Cholesterol, Hypertension, UTI Additional Past Medical Histor: Chronic back/knee pain Past Surgical History: Tonsillectomy Additional Past Surgical Histo: Back surgery Smoking: Non-smoker Alcohol Use: Rarely Drug Use: None Adult General Chief Complaint Chief Complaint: MULTIPLE COMPLAINTS HPI HPI Patient is an 80-year-old female who presents to the emergency room who came to the emergency room with altered mental status, lower abdominal pain. Patient's states that she has been having lower abdominal pain for the last [address] months[address] They did a CT scan last week that was normal. She has had multiple rounds of blood work and urine test that have been normal. He states that 24 hours ago she developed confusion and is difficult to take care of due to this. Patient is confused on exam and is unable to provide any kind of history. does not believe she has had any kind of fevers. He has not noticed any kind of change in bowel habits. Review of Systems Review of Systems Complete ROS is negative unless otherwise documented in HPI Current Medications Current Medications Current Medications Medications (Trade) Dose Ordered Sig/Nohemi Start Time Stop Time Status Last Admin Dose Admin Haloperidol Lactate (Haldol) 5 mg 1X ONCE 10/06/20 12:30 10/06/20 12:32 DC 10/06/20 13:37 5 MG Lorazepam (Ativan Inj) 1 mg 1X ONCE 10/06/20 12:30 10/06/20 12:32 DC 10/06/20 12:29 1 MG Sodium Chloride 1,000 ml @ 1,000 mls/hr 1X ONCE 10/06/20 13:15 10/06/20 14:14 DC 10/06/20 13:33 1,000 MLS/HR Allergies Allergies Allergies Coded Allergies Type Severity Reaction Last Updated Verified Iodinated Contrast Media Allergy Unknown 02/16/20 Yes Physical Exam Physical Exam General: Awake, alert, mild distress, confused, trying to get out of bed HEENT: Atraumatic, EOMI, PERRL, airway patent, moist oral mucosa Neck: Supple, trachea midline Respiratory: CTA bilaterally, normal effort, no wheezing/crackles CV: Tachycardic, no murmur, cap refill <2 GI: Soft, nondistended, lower abdominal tenderness, no masses MSK: No obvious deformities Skin: Warm, dry, intact Neuro: A&O x1, speech NL, sensory and motor grossly intact, no focal deficits Psych: Anxious, not suicidal or homicidal Current Patient Data Vital Signs Vital Signs Date Time Temp Pulse Resp B/P (MAP) Pulse Ox O2 Delivery O2 Flow Rate FiO2 10/06/20 10:30 98.9 135 36 147/97 (114) 97 Room Air Lab Results Laboratory Tests Test 10/06/20 11:11 10/06/20 11:40 White Blood Count 6.3 x10^3/uL (4.0-11.0) Red Blood Count 4.81 x10^6/uL (3.50-5.40) Hemoglobin 15.5 g/dL (12.0-15.5) Hematocrit 45.9 % (36.0-47.0) Mean Corpuscular Volume 95 fL (79-100) Mean Corpuscular Hemoglobin 32 pg (25-35) Mean Corpuscular Hemoglobin Concent 34 g/dL (31-37) Red Cell Distribution Width 12.5 % (11.5-14.5) Platelet Count 254 x10^3/uL (140-400) Neutrophils (%) (Auto) 61 % (31-73) Lymphocytes (%) (Auto) 25 % (24-48) Monocytes (%) (Auto) 13 % (0-9) H Eosinophils (%) (Auto) 0 % (0-3) Basophils (%) (Auto) 0 % (0-3) Neutrophils # (Auto) 3.8 x10^3uL (1.8-7.7) Lymphocytes # (Auto) 1.6 x10^3/uL (1.0-4.8) Monocytes # (Auto) 0.8 x10^3/uL (0.0-1.1) Eosinophils # (Auto) 0.0 x10^3/uL (0.0-0.7) Basophils # (Auto) 0.0 x10^3/uL (0.0-0.2) Sodium Level 127 mmol/L (136-145) L Potassium Level 4.5 mmol/L (3.5-5.1) Chloride Level 92 mmol/L (98-107) L Carbon Dioxide Level 19 mmol/L (21-32) L Anion Gap 16 (6-14) H Blood Urea Nitrogen 10 mg/dL (7-20) Creatinine 1.2 mg/dL (0.6-1.0) H Estimated GFR (Cockcroft-Gault) 43.1 BUN/Creatinine Ratio 8 (6-20) Glucose Level 127 mg/dL (70-99) H Calcium Level 9.7 mg/dL (8.5-10.1) Total Bilirubin 0.8 mg/dL (0.2-1.0) Aspartate Amino Transferase (AST) 28 U/L (15-37) Alanine Aminotransferase (ALT) 28 U/L (14-59) Alkaline Phosphatase 98 U/L (46-116) Troponin I Quantitative < 0.017 ng/mL (0-0.055) Total Protein 7.9 g/dL (6.4-8.2) Albumin 3.7 g/dL (3.4-5.0) Albumin/Globulin Ratio 0.9 (1.0-1.7) L Urine Collection Type Unknown Urine Color Yellow Urine Clarity Clear Urine pH 7.0 Urine Specific [place] 1.015 Urine Protein Neg (NEG-TRACE) Urine Glucose (UA) Neg mg/dL (NEG) Urine Ketones (Stick) Neg mg/dL (NEG) Urine Blood Trace (NEG) Urine Nitrite Neg (NEG) Urine Bilirubin Neg (NEG) Urine Urobilinogen Dipstick 0.2 mg/dL (0.2 mg/dL) Urine Leukocyte Esterase Neg (NEG) Urine RBC Occ /HPF (0-2) Urine WBC Occ /HPF (0-4) Urine Squamous Epithelial Cells Few /LPF Urine Transitional Epithelial Cells Occ /LPF Urine Amorphous Sediment Present /HPF Urine Bacteria 0 /HPF (0-FEW) EKG EKG [] Radiology/Procedures Radiology/Procedures [] Heart Score Risk Factors: Risk Factors: DM, Current or recent (<one month) smoker, HTN, HLP, family history of CAD, obesity. Risk Scores: Risk Factors: DM, Current or recent (<one month) smoker, HTN, HLP, family history of CAD, obesity. Course & Med Decision Making Course & Med Decision Making Pertinent Labs and Imaging studies reviewed. (See chart for details) Patient is a 80-year-old female with a history of high blood pressure who presents to the Emergency Room with altered mental status. On exam, patient is confused and trying to get out of bed. At this time it is unclear what is causing the patient's altered mental status, however they do not appear to be at their baseline. Differential includes infection, electrolyte imbalance, ACS, stroke, intracranial bleed, polypharmacy, dehydration, dementia, renal failure. Patient does not have hypo-or hyperthermia. No history was provided to suggest seizure with postictal state. Glucose is normal upon arrival. At arrival, patient is protecting their airway and does not need to be intubated. There are not any signs of trauma. To evaluate the patient's altered mental status, CBC, CMP, UA, troponin, EKG, CT head will be ordered. Patient does have a mildly low sodium but otherwise has a normal work-up. CT head shows some artifact. There is no signs of trauma on exam. It is possible this could be related to polyph armacy. Patient did receive multiple doses of Haldol due to confusion and agitation. Patient will be admitted for altered mental status. Dragon Disclaimer Dragon Disclaimer This electronic medical record was generated, in whole or in part, using a voice recognition dictation system. Departure Departure: Impression: Primary Impression: Altered mental status Additional Impression: Hyponatremia Disposition: ADMITTED INPT THIS HOSP Condition: STABLE Referrals: EDMOND OLIVEIRA MD (PCP) Problem Qualifiers MAIRA MOORE MD Oct 06, 2020 15:17
[2020-10-06] MEDS ORDERED: ESTR0.3T PO (15:20)
[2020-10-06] MEDS ORDERED: NYST15CR2 TP (15:20)
[2020-10-06] MEDS ORDERED: FLUC150T2 PO (15:20)
[2020-10-06] MEDS ORDERED: LIDOCAINE 2% TOPICAL JELLY 30GM TUBE. TP PRN (18:15)
[2020-10-06 19:15] VITALS: BP 145/94
[2020-10-06] MEDS: ALPRAZolam 0.25 MG TABLET PO SCH (20:31)
[2020-10-06] MEDS: APIXABAN 5 MG TABLET. PO SCH (20:31)
[2020-10-06] MEDS: PHENAZOPYRIDINE 200 MG TABLET. PO SCH (20:31)
[2020-10-06 23:02] VITALS: BP 103/58
--- NOTE | 2020-10-07 06:01 | RAD ---
EXAM: CHEST ONE VIEW. HISTORY: Altered mental status. COMPARISON: 08/09/2020. FINDINGS: A frontal view of the chest is obtained. A left-sided pacemaker has its lead in the right v entricle. There is a mild hazy opacity in the left base. There is no pneumothorax or pleural effusion. The hear t is not enlarged. IMPRESSION: 1. Mild left basilar atelectasis versus infiltrate. Electronically signed by: Klarissa Shaikh MD (10/07/2020 5:59 AM) [facility]
[2020-10-07 06:05] VITALS: BP 127/79
[2020-10-07] MEDS: SPIRONOLACTONE 25 MG TABLET PO SCH (07:55)
[2020-10-07] MEDS: ALPRAZolam 0.25 MG TABLET PO SCH ×2 (07:55→20:31)
[2020-10-07] MEDS: APIXABAN 5 MG TABLET. PO SCH ×2 (07:55→20:31)
[2020-10-07] MEDS: PHENAZOPYRIDINE 200 MG TABLET. PO SCH ×3 (07:56→20:31)
[2020-10-07] MEDS: LOSARTAN 25 MG TABLET. PO SCH (07:56)
[2020-10-07] MEDS: NYSTATIN/TRIAMCIN TOPICAL CREAM 15GM TUBE. TP SCH ×2 (09:00→20:31)
[2020-10-07 11:22] VITALS: BP 109/70
[2020-10-07 12:18] LABS: BASO % 0 % (0-3); EOS % 0 % (0-3); HEMATOCRIT 44.2 % (36.0-47.0); HEMOGLOBIN 14.7 g/dL (12.0-15.5); LYMPH # 1.8 x10^3/uL (1.0-4.8); LYMPH % 28 % (24-48); MEAN CORPUSCULAR HEMOGLOBIN 32 pg (25-35); MEAN CORPUSCULAR HGB CONC 33 g/dL (31-37); MEAN CORPUSCULAR VOLUME 96 fL (79-100); MONO % 16 % (0-9); NEUT # 3.7 x10^3uL (1.8-7.7); NEUT % 56 % (31-73); PLATELET COUNT 215 x10^3/uL (140-400); RED BLOOD COUNT 4.59 x10^6/uL (3.50-5.40); RED CELL DISTRIBUTION WIDTH 12.7 % (11.5-14.5); WHITE BLOOD COUNT 6.6 x10^3/uL (4.0-11.0)
[2020-10-07 12:51] LABS: CALCIUM 8.8 mg/dL (8.5-10.1); GFR 53.2; POTASSIUM 4.1 mmol/L (3.5-5.1)
--- NOTE | 2020-10-07 14:27 | RAD ---
Renal ultrasound 10/07/2020. Reason for exam: History of dilated renal pelves and calcifications. FINDINGS: The kidneys have normal cortical thickness and echogenicity. No solid mass is seen. There i s mild dilatation of the right intrarenal collecting system and left renal pelvis. No ion hydroneph rosis is seen. Scanning in the area of the bladder shows a decompressed bladder from a catheter. IMPRESSION: There is mild fullness of the intrarenal collecting systems on each side without evidence of significant obstruction. Electronically signed by: Maurice Roa Jr., MD (10/07/2020 2:24 PM) [facility]
--- NOTE | 2020-10-07 14:56 | RAD ---
CT THORAX WO INDICATION: pneumonia . COMPARISON STUDY: Chest radiograph 09/29/2020. TECHNIQUE: Unenhanced axial images were obtained through the lungs and upper abdomen. Coronal and sa gittal multiplanar reconstructions were also obtained. PQRS compliance statement: One or more of the following individualized dose reduction techniques were utilized for this examinat ion: 1. Automated exposure control 2. Adjustment of the mA and/or kV according to patient size 3. Use of iterative reconstruction technique FINDINGS: Lungs and Airways: No pulmonary mass or consolidation. Normal central airways. Pleura: The pleural spaces are normal. Heart and Mediastinum: The visualized thyroid gland is normal in size and attenuation. No axillary or supraclavicular lymphadenopathy. No mediastinal, hilar or retrocrural lymphadenopathy. Normal cardia c size. No pericardial effusion. Coronary artery atherosclerotic disease. Atherosclerosis of the thor acic aorta. Abdomen: The visualized abdominal organs demonstrate no abnormality. Bones and Soft Tissues: Degenerative changes of the spine. IMPRESSION: 1. No pulmonary mass or consolidation. 2. No thoracic lymphadenopathy. Electronically signed by: Christopher Monteiro MD (10/07/2020 2:54 PM) [id number]
[2020-10-07 15:41] VITALS: BP 103/67
[2020-10-07] MEDS: IV NORMAL SALINE 1,000ML 1,000 ML IV SCH (15:43)
[2020-10-07 19:53] VITALS: BP 105/68
[2020-10-07 22:14] VITALS: BP 103/74
--- NOTE | 2020-10-08 00:18 | PN ---
DATE: SUBJECTIVE: An 80-year-old female admitted yesterday with change in mental status as well as generalized confusion and lightheadedness and dizziness. The patient's workup has been basically noncontributory so far; however, the patient does have numerous stones in her kidney, which might be causing some problems with her hyponatremia that is improved somewhat being on normal saline. OBJECTIVE: VITAL SIGNS: Blood pressure 105/70, respiratory rate 18, pulse 84 and afebrile. GENERAL: The patient is alert and oriented. LUNGS: Diminished, but basically clear. CARDIOVASCULAR: Regular sinus rhythm. ABDOMEN: Soft, but fairly scaphoid, diffuse tenderness, but nothing direct. EXTREMITIES: No clubbing, cyanosis, or edema. Patient's sodium did drop from 127 to 126, but she is on normal saline and will repeat labs in the morning. EDMOND OLIVEIRA MD DR: CHEL/edson JOB#: [id number] / [id number]
[2020-10-08] MEDS: IV NORMAL SALINE 1,000ML 1,000 ML IV SCH ×2 (05:05→17:39)
[2020-10-08 06:10] VITALS: BP 114/79
[2020-10-08] MEDS: ALPRAZolam 0.25 MG TABLET PO SCH ×2 (08:26→20:33)
[2020-10-08] MEDS: PHENAZOPYRIDINE 200 MG TABLET. PO SCH ×3 (08:26→20:33)
[2020-10-08] MEDS: SPIRONOLACTONE 25 MG TABLET PO SCH (08:26)
[2020-10-08] MEDS: LOSARTAN 25 MG TABLET. PO SCH (08:27)
[2020-10-08] MEDS: APIXABAN 5 MG TABLET. PO SCH ×2 (08:27→20:33)
[2020-10-08] MEDS: NYSTATIN/TRIAMCIN TOPICAL CREAM 15GM TUBE. TP SCH ×2 (09:00→20:33)
[2020-10-08 10:33] LABS: CALCIUM 8.6 mg/dL (8.5-10.1); CREATININE 0.9 mg/dL (0.6-1.0); GFR 60.1; POTASSIUM 3.7 mmol/L (3.5-5.1)
[2020-10-08 11:21] VITALS: BP 113/73
[2020-10-08 14:33] VITALS: BP 104/70
[2020-10-08 20:11] VITALS: BP 111/77
[2020-10-08] MEDS: LACTOBACILLUS RHAMNOSUS GG 1 CAPSULE. PO SCH (20:33)
--- NOTE | 2020-10-08 22:08 | PN ---
DATE: SUBJECTIVE: An 80-year-old female came in with a change in mental status, metabolic encephalopathy, hyponatremia. The patient herself is feeling a little bit better today. Has some abdominal pain, has a history of prolapsed bladder. Sodium up to 129, otherwise basically still very weak. Will receive PT, OT for her generalized weakness. OBJECTIVE: VITAL SIGNS: Blood pressure 105/70, respiratory rate 16, pulse 100, afebrile. GENERAL: The patient is alert, little bit more oriented and speech is somewhat still lethargic. The patient is still extremely weak on her legs. We will go ahead and continue to monitor the patient accordingly, make further evaluation per her results of further testing. Continue on normal saline. Also, IV antibiotic therapy, physical and occupational therapy. IMPRESSION: Metabolic encephalopathy, hyponatremia, hyperglycemia. PLAN: As above. Continue to monitor the patient accordingly and make further assessment with PT, OT recommendations. EDMOND OLIVEIRA MD DR: CHEL/edson JOB#: [id number] / [id number]
[2020-10-08 22:44] VITALS: BP 128/82
[2020-10-09 05:43] VITALS: BP 141/88
[2020-10-09 06:54] LABS: CALCIUM 8.4 mg/dL (8.5-10.1); CREATININE 0.8 mg/dL (0.6-1.0); GFR 68.8; POTASSIUM 3.6 mmol/L (3.5-5.1)
[2020-10-09] MEDS: IV NORMAL SALINE 1,000ML 1,000 ML IV SCH ×2 (07:34→21:05)
[2020-10-09] MEDS: ALPRAZolam 0.25 MG TABLET PO SCH ×2 (07:35→21:00)
[2020-10-09] MEDS: APIXABAN 5 MG TABLET. PO SCH ×2 (07:35→21:00)
[2020-10-09] MEDS: LOSARTAN 25 MG TABLET. PO SCH (07:35)
[2020-10-09] MEDS: PHENAZOPYRIDINE 200 MG TABLET. PO SCH ×3 (07:35→21:00)
[2020-10-09] MEDS: LACTOBACILLUS RHAMNOSUS GG 1 CAPSULE. PO SCH ×2 (07:35→21:00)
[2020-10-09] MEDS: SPIRONOLACTONE 25 MG TABLET PO SCH (07:35)
[2020-10-09 10:31] VITALS: BP 121/80
[2020-10-09 15:25] VITALS: BP 139/78
[2020-10-09 21:06] VITALS: BP 163/109
--- NOTE | 2020-10-09 23:15 | PN ---
DATE: SUBJECTIVE: An 80-year-old female admitted with change in mental status, seems to be doing a little bit better, but still a little bit confused, disoriented, still very weak, receiving PT, OT. The patient noted she also had hyponatremia and that seems to be improved with the IV normal saline for which she is receiving IV. OBJECTIVE: VITAL SIGNS: Blood pressure therefore of 140/70, respiratory rate 18, pulse 80, afebrile, 94% oxygen saturation. The patient is alert, still very weak, however, in her answers and seems a little bit confused at times. LUNGS: Diminished, but basically clear. CARDIOVASCULAR: Irregularly irregular. ABDOMEN: Soft, nontender. EXTREMITIES: No clubbing, cyanosis or edema. NEUROLOGIC: Baseline for her. Otherwise, continue on IV antibiotic therapy. IMPRESSION: Metabolic encephalopathy, hyponatremia, hyperglycemia. Continue with PT, OT and make further evaluation on her as indicated. EDMOND OLIVEIRA MD DR: CHEL/edson JOB#: [id number] / [id number]
[2020-10-09 23:56] VITALS: BP 129/78
[2020-10-10 05:47] VITALS: BP 138/89
[2020-10-10] MEDS: ALPRAZolam 0.25 MG TABLET PO SCH (07:56)
[2020-10-10] MEDS: LACTOBACILLUS RHAMNOSUS GG 1 CAPSULE. PO SCH (07:56)
[2020-10-10] MEDS: PHENAZOPYRIDINE 200 MG TABLET. PO SCH (07:56)
[2020-10-10 07:57] VITALS: BP 138/89
[2020-10-10] MEDS: LOSARTAN 25 MG TABLET. PO SCH (07:57)
[2020-10-10] MEDS: APIXABAN 5 MG TABLET. PO SCH (07:57)
[2020-10-10] MEDS: SPIRONOLACTONE 25 MG TABLET PO SCH (07:57)
--- NOTE | 2020-10-10 11:31 | DISCH ---
HOME HEALTH DISCHARGE/MEDS DISCHARGE INFORMATION: Discharge Date: Oct 10, 2020 Final Diagnosis: Problems Medical Problems: (1) Altered mental status Status: Acute (2) Hyponatremia Status: Acute Condition on Discharge: Stable CODE STATUS: Code Status: Full HOME HEALTH: Face to Face: I certify this patient is under my care and that I, or a nurse practitioner or physician's hr assistant working with me, had a face to face encounter that meets the physician face to face encounter requirements with this patient on 10/10/2020 Residential For: Assess Cardiopulm Status, Assess & Educate Safety, Assess/Skilled Observatio, Medication Management Physical Therapy For: Evalulation/Treatment Occupational Therapy For: Evaluation/Treatment Homebound Status Met By: Poor coordination w/ amb. POST DISCHARGE ORDERS: Activity Instructions for Disc: No restrictions, Activity as tolerated DIET AFTER DISCHARGE: Cardiac CERTIFICATION STATEMENT: Certification Statement: Based on the above finding, I certify that this patient is confined to the home and needs intermittent correction care, physical th erapy and/or speech therapy, or continues to need occupational therapy.~ This patient is under my care, and I have initiated the establishment of the plan of care.~ This patient will be followed by myself or a community physician who will periodically review the plan of care. DISCHARGE MEDICATIONS: Home Meds Reported Medications Estrogens, Conjugated (PREMARIN) 0.3 Mg Tablet, 1 TAB PO 3X/WEEK for LOW ESTROGEN, #30 TAB 11 Refills 10/06/20 Nystatin/Triamcin (NYSTATIN-TRIAMCINOLONE CREAM) 15 Gm Cream..g., 1 ANNA TP BID for REDNESS, #15 GM 1 Refill 10/06/20 Fluconazole (FLUCONAZOLE) 150 Mg Tablet, 150 MG PO 3X/WEEK for YEAST INFECTIONS, TAB 10/06/20 Lidocaine (Lidocaine) 5 Gm Cream..g., 1 ANNA TP PRN TID PRN for PAIN for 14 Days, #15 GM 0 Refills 10/06/20 Lubiprostone (AMITIZA) 8 Mcg Capsule, 1 CAP PO BID for CONSITPATION for 30 Days, #60 CAP 0 Refills 10/06/20 Phenazopyridine Hcl (PHENAZOPYRIDINE HCL) 200 Mg Tablet, 1 TAB PO TID for urinary discomfort for 2 Days, #6 TAB 0 Refills after food 10/06/20 Alprazolam (ALPRAZOLAM) 0.25 Mg Tablet, 1 TAB PO BID for ANXIETY, #60 TAB 10/06/20 Linaclotide (LINZESS) 145 Mcg Capsule, 145 MCG PO DAILY for CONSTIPATION, CAP 10/06/20 Apixaban (ELIQUIS) 5 Mg Tablet, 5 MG PO BID for BLOOD THINNER 02/16/20 Losartan Potassium (LOSARTAN POTASSIUM) 100 Mg Tablet, 25 MG PO DAILY for HYPERTENSION, TAB 02/16/20 Spironolactone (SPIRONOLACTONE) 25 Mg Tablet, 1 TAB PO DAILY, #90 TAB 1 Refill 05/24/18 EDMOND OLIVEIRA MD Oct 10, 2020 11:31
== END 2020-10-10 13:35 | disposition home health service (06) | DRG 640 ==
LOC: ER 10:30 → 1 SOUTH 13:17
PROVIDERS: ADMIT Family Medicine; ATTEND Family Medicine
DX: E87.1 Hypo-osmolality and hyponatremia (principal); G93.41 Metabolic encephalopathy; E78.00 Pure hypercholesterolemia, unspecified; I10 Essential (primary) hypertension; I48.91 Unspecified atrial fibrillation; N20.0 Calculus of kidney; G89.29 Other chronic pain; M54.9 Dorsalgia, unspecified; R73.9 Hyperglycemia, unspecified; M25.569 Pain in unspecified knee; Z87.440 Personal history of urinary (tract) infections; Z82.49 Family history of ischemic heart disease and other diseases of the circulatory system
CPT/HCPCS: 36415; 70450; 71045; 71250; 76770; 80048; 80053; 81001; 83605; 84443; 84484; 85025; 86140; 93005; 96361; 96372; 96374; 96375; 96376; J0696; J1630; J2060; P9612; 97110; 97116; 97535; 99285-25; J7030

== ENCOUNTER 2020-10-10 16:08 | Observation (INO) | payer MEDICARE, BC ==
[~2020-10-10] VITALS: Ht 170.2 cm; Wt 91.2 kg
[~2020-10-10 16:08] MED LIST changes: +ALPR0.254 PO; +ESTR0.3T PO; +FLUC150T2 PO; +LIDO5CRE18 TP; +LINA145C PO; +LUBI8CAP4 PO; +NYST15CR2 TP; +PHEN-444 PO
--- NOTE | 2020-10-10 16:50 | NUR ---
ADMISSION [id number] RETURNS TO FLOOR ADMISSION FROM ER AFTER DISCHARGE EARLIER TODAY. PT REPORTS THAT SHE ARRIVED HOME AND CRAWLED UP THE STAIRS IN HER HOME, BUT THEN WAS UNABLE TO GET UP FROM THE FLOOR. SHE REPORTS THERE ARE 2 SETS OF 7 STAIRS IN HER HOME THAT SHE IS UNABLE TO NEGOTIATE SAFELY. SHE ARRIVES WITH EMS FROM ED ON A GURNEY WITHOUT O2 OR OTHER EQUIPMENT NEEDS. VS ASSESSED, PT SETTLED INTO ROOM. ORIENTED TO CALL [facility]. RAPID COVID TESTING OBTAINED IMMEDIATELY FOR PENDING DC TO SKILLED REHAB TOMORROW MORNING.
[2020-10-10 17:10] VITALS: BP 155/81
[2020-10-10 19:05] VITALS: BP 122/71
[2020-10-10] MEDS: APIXABAN 5 MG TABLET. PO SCH (21:49)
[2020-10-10] MEDS: ALPRAZolam 0.25 MG TABLET PO SCH (21:49)
[2020-10-10 22:31] VITALS: BP 132/82
[2020-10-11 06:08] VITALS: BP 146/79
[2020-10-11] MEDS ORDERED: LUBIPROSTONE 24 MCG CAPSULE PO SCH (08:00)
[2020-10-11] MEDS: ALPRAZolam 0.25 MG TABLET PO SCH (08:22)
[2020-10-11] MEDS: APIXABAN 5 MG TABLET. PO SCH (08:23)
[2020-10-11] MEDS ORDERED: PHENAZOPYRIDINE 200 MG TABLET. PO SCH (09:00)
[2020-10-11] MEDS ORDERED: SPIRONOLACTONE 25 MG TABLET PO SCH (09:00)
[2020-10-11] MEDS ORDERED: NON FORMULARY ITEM (Linaclotide (Linzess) 145 MCG) PO SCH (09:00)
[2020-10-11] MEDS ORDERED: LOSARTAN 25 MG TABLET. PO SCH (09:00)
--- NOTE | 2020-10-11 10:04 | DISCH ---
DISCHARGE ORDERS DISCHARGE DATE: Oct 11, 2020 FINAL DIAGNOSIS syncope falls CONDITION AT DISCHARGE: Stable Code Status: Full SNF STAY <30 DAYS: Yes HOSPICE: No HOSPICE EVALUATE & TREAT: No ADMIT TO LTAC: No POST DISCHARGE ORDERS: ACTIVITY ORDERS: Resume previous activity WEIGHT BEARING STATUS: As tolerated DIET AFTER DISCHARGE: Cardiac TREATMENT/EQUIPMENT ORDERS: ADAPTIVE EQUIPMENT NEEDED: None DISCHARGE MEDICATIONS: Home Meds Reported Medications Estrogens, Conjugated (PREMARIN) 0.3 Mg Tablet, 1 TAB PO 3X/WEEK for LOW ESTROGEN, #30 TAB 11 Refills 10/06/20 Lubiprostone (AMITIZA) 8 Mcg Capsule, 1 CAP PO BID for CONSITPATION for 30 Days, #60 CAP 0 Refills 10/06/20 Phenazopyridine Hcl (PHENAZOPYRIDINE HCL) 200 Mg Tablet, 1 TAB PO TID for urinary discomfort for 2 Days, #6 TAB 0 Refills after food 10/06/20 Alprazolam (ALPRAZOLAM) 0.25 Mg Tablet, 1 TAB PO BID for ANXIETY, #60 TAB 10/06/20 Linaclotide (LINZESS) 145 Mcg Capsule, 145 MCG PO DAILY for CONSTIPATION, CAP 10/06/20 Apixaban (ELIQUIS) 5 Mg Tablet, 5 MG PO BID for BLOOD THINNER 02/16/20 Losartan Potassium (LOSARTAN POTASSIUM) 100 Mg Tablet, 25 MG PO DAILY for HYPERTENSION, TAB 02/16/20 Spironolactone (SPIRONOLACTONE) 25 Mg Tablet, 1 TAB PO DAILY, #90 TAB 1 Refill 05/24/18 Discontinued Reported Medications Fluconazole (FLUCONAZOLE) 150 Mg Tablet, 150 MG PO 3X/WEEK for YEAST INFECTIONS, TAB 10/06/20 EDMOND OLIVEIRA MD Oct 11, 2020 10:04
[2020-10-11 11:23] VITALS: BP 107/80
--- NOTE | 2020-10-11 13:20 | NUR ---
DISCHARGE NOTE-PIV DISCONTINUED ET PT [facility] ALL MEDICATION LISTS ET DISCHARGE INFORMATION SENT TO FACILITY BY [employer] OPERATIONS MANAGER. REPORT ALREADY CALLED TO FACILITY. PT WHEELED TO FACILITY VAN IN WHEELCHAIR BY PRODUCT SUPPORT SPECIALIST. ALL POSSESSIONS SENT WITH PATIENT AT TIME OF DISCHARGE.
[2020-10-12] MEDS ORDERED: ESTROGENS, CONJUGATED 0.3 MG TABLET PO SCH (09:00)
== END 2020-10-11 13:22 ==
LOC: ER 16:08 → EDSTATUS 16:41 → 1 SOUTH 16:53 → INTOOBSV 16:53
PROVIDERS: ADMIT Family Medicine; ATTEND Family Medicine
DX: R55 Syncope and collapse (principal); Z20.822 Contact with and (suspected) exposure to COVID-19; E78.00 Pure hypercholesterolemia, unspecified; G56.03 Carpal tunnel syndrome, bilateral upper limbs; M54.9 Dorsalgia, unspecified; E66.9 Obesity, unspecified; F41.9 Anxiety disorder, unspecified; Z87.441 Personal history of nephrotic syndrome; Z90.49 Acquired absence of other specified parts of digestive tract; Z95.810 Presence of automatic (implantable) cardiac defibrillator; Z98.890 Other specified postprocedural states; Z79.899 Other long term (current) drug therapy; Z68.31 Body mass index [BMI] 31.0-31.9, adult; W19.XXXA Unspecified fall, initial encounter; Y92.89 Other specified places as the place of occurrence of the external cause; Y93.89 Activity, other specified; Y99.8 Other external cause status
CPT/HCPCS: 87426; G0378; G0379; U0003

== ENCOUNTER → 2021-04-01 | Outpatient (CLI) | payer MEDICARE, BC ==
[~2021-04-01] MED LIST changes: -VALS1TAB22 PO; +VALS1TAB23 PO
--- NOTE | 2021-04-01 13:28 | RAD ---
EXAM: Bilateral knees, standing view; right knee, 2 views. HISTORY: Pain. COMPARISON: 12/17/2020. FINDINGS: A standing view both knees and 2 views of the right knee are obtained. There is a right kne e arthroplasty in expected position. There is no evidence of arthroplasty loosening. There is a moder ate right knee joint effusion. There is right knee soft tissue swelling. There is severe medial lewis rtment joint space narrowing, subchondral sclerosis and spurring involving the left knee. There is se mikel lateral compartment left knee spurring. There is left genu varus. IMPRESSION: 1. Right knee arthroplasty in expected position. There is a moderate right knee effusion and surround ing soft tissue swelling. 2. 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 Electronically signed by: Jory Pineda MD (04/01/2021 1:25 PM) [id number]
== END ==
LOC: RAD 12:36
PROVIDERS: ATTEND Physician Assistant
DX: M17.12 Unilateral primary osteoarthritis, left knee (principal); M21.162 Varus deformity, not elsewhere classified, left knee; M25.461 Effusion, right knee; Z96.651 Presence of right artificial knee joint
CPT/HCPCS: 73560; 73565